=== PATIENT | male | born 1990 | race African-American/Black ===

== ENCOUNTER 2020-01-27 13:57 | Emergency (ER) | payer MEDICAID ==
[~2020-01-27] VITALS: Ht 188 cm; Wt 79.5 kg
[2020-01-27 14:36] VITALS: BP 115/76
== END 2020-01-27 16:54 | disposition home or self-care (01) ==
LOC: ER 13:57
DX: G93.3 Postviral and related fatigue syndromes (principal); R05 Cough; R43.8 Other disturbances of smell and taste; R43.0 Anosmia; J45.909 Unspecified asthma, uncomplicated; Z71.89 Other specified counseling
CPT/HCPCS: 99283

== ENCOUNTER 2020-10-27 09:07 | Emergency (ER) | payer MEDICAID ==
[~2020-10-27] VITALS: Ht 182.9 cm; Wt 68.0 kg
[~2020-10-27 09:07] MED LIST: ACET-2708 MT; IBUP-2029 MT
[2020-10-27] MEDS ORDERED: ACETAMINOPHEN 325MG TABLET PO ONE (12:00)
[2020-10-27 13:30] VITALS: BP 126/80
[2020-10-27 14:02] LABS: BASOPHILS % 0.4 % (0.0-2.0); EOSINOPHILS % 1.1 % (0.0-5.0); HEMATOCRIT. 43.9 % (42.0-52.0); HEMOGLOBIN. 14.9 g/dL (14.0-18.0); LYMPHOCYTES % 21.2 % (20.0-50.0); MEAN CORPUSCULAR HEMOGLOBIN 28.9 pg (28.0-32.0); MEAN CORPUSCULAR VOLUME 85.4 fL (80.0-94.0); MEAN PLATELET VOLUME 8.9 fl (7.4-10.4); MONOCYTES % 11.3 % (2.0-8.0); PLATELET 198 x1000/uL (130-400); RED BLOOD CELL COUNT 5.14 mill/uL (4.7-6.1); RED CELL DISTRIBUTION WIDTH 13.8 % (11.6-14.6)
[2020-10-27 14:09] LABS: CHLORIDE 105 mEq/L (98-107)
[2020-10-27 14:38] LABS: *BARBITURATES SCREEN URINE NEGATIVE (NEGATIVE)
[2020-10-27 14:39] LABS: *AMPHETAMINES SCREEN URINE NEGATIVE (NEGATIVE); *BENZODIAZEPINES SCREEN URINE NEGATIVE (NEGATIVE); *COCAINE SCREEN URINE NEGATIVE (NEGATIVE); METHADONE URINE SCREEN NEGATIVE (NEGATIVE); OPIATES URINE SCREEN PRESUMTIVE POSITIVE (NEGATIVE); PHENCYCLIDINE URINE SCREEN NEGATIVE (NEGATIVE)
[2020-10-27 14:40] LABS: CANNABINOID URINE SCREEN PRESUMTIVE POSITIVE (NEGATIVE)
== END 2020-10-27 14:52 | disposition left against medical advice (07) ==
LOC: ER 09:07
DX: F12.10 Cannabis abuse, uncomplicated (principal); F17.200 Nicotine dependence, unspecified, uncomplicated; Z20.822 Contact with and (suspected) exposure to COVID-19; R05 Cough; R07.89 Other chest pain; R55 Syncope and collapse; R06.02 Shortness of breath
CPT/HCPCS: 36415; 71045; 80048; 80305; 85025; 87426; 99284

== ENCOUNTER 2024-05-28 19:59 | Emergency (ER) | payer SELFPAY ==
[~2024-05-28] VITALS: Ht 175.3 cm; Wt 84.0 kg
[2024-05-28 20:39] VITALS: BP 126/85; TEMP 36.8; O2SAT 100
[2024-05-28 20:43] VITALS: PULSE 72; RESP 16; O2SAT 99
[2024-05-29] MEDS: LIDOCAINE 5% PATCH TOP SCH (00:15)
[2024-05-29] MEDS: KETOROLAC 15MG/ML VIAL IM ONE (00:22)
== END 2024-05-29 00:21 | disposition left against medical advice (07) ==
LOC: ER 19:59
DX: G89.29 Other chronic pain (principal); M54.50 Low back pain, unspecified; F12.90 Cannabis use, unspecified, uncomplicated; F11.90 Opioid use, unspecified, uncomplicated; Z79.899 Other long term (current) drug therapy
CPT/HCPCS: 99281